=== PATIENT | male | born 1975 | race Caucasian/White ===

== ENCOUNTER 2018-02-23 15:27 | Emergency (ER) | payer MEDICAID ==
[2018-02-23] MEDS: ACETAMINOPHEN 325 MG TAB PO (18:03)
== END 2018-02-23 18:54 | disposition home or self-care (01) ==
LOC: FTE 15:27
DX: S06.0X1A Concussion with loss of consciousness of 30 minutes or less, initial encounter (principal); S80.02XA Contusion of left knee, initial encounter; W01.198A Fall on same level from slipping, tripping and stumbling with subsequent striking against other object, initial encounter; Y92.89 Other specified places as the place of occurrence of the external cause
CPT/HCPCS: 70450; 99284-25